=== PATIENT | female | born 1990 | race Two or more races ===

== ENCOUNTER 2020-11-23 03:45 | Emergency (ER) | payer SELFPAY ==
[~2020-11-23] VITALS: Ht 149.9 cm; Wt 52.2 kg
[2020-11-23] MEDS ORDERED: LIDOCAINE 1% HCL (LOCAL ANESTH.) INJ 20ML MDV IJ ONE (06:00)
[2020-11-23 07:14] VITALS: BP 125/82
== END 2020-11-23 07:15 | disposition home or self-care (01) ==
LOC: ER 03:45
DX: S01.511A Laceration without foreign body of lip, initial encounter (principal); X58.XXXA Exposure to other specified factors, initial encounter; Y93.89 Activity, other specified; Y92.89 Other specified places as the place of occurrence of the external cause; Y99.8 Other external cause status
CPT/HCPCS: 12014; 99283; J2001

== ENCOUNTER 2021-07-31 15:20 | Inpatient (IN) | payer MEDICAID, OTHER ==
[~2021-07-31] VITALS: Ht 149.9 cm; Wt 61.2 kg
[2021-07-31] MEDS ORDERED: METHYLERGONOVINE MALEATE 0.2 MG/ML AMP IM ONE (15:40)
[2021-07-31] MEDS ORDERED: LACT. RINGERS/OXYTOCIN 20UNITS 1,000 ML IV ONE (15:40)
[2021-07-31] MEDS ORDERED: miSOPROStol 100 mcg TAB ONE (15:40)
[2021-07-31] MEDS ORDERED: LIDOCAINE 2%HCL (LOCAL ANESTH.) INJ 20ML MDV ONE (15:40)
[2021-07-31] MEDS ORDERED: WITCH HAZEL-GLYCERIN PAD TOP PRN (15:45)
[2021-07-31] MEDS ORDERED: PHISODERM TOP SOLN 240ML BTL TOP PRN (15:45)
[2021-07-31] MEDS ORDERED: LIDOCAINE 2%HCL (LOCAL ANESTH.) INJ 20ML MDV IJ PRN (15:45)
[2021-07-31] MEDS ORDERED: DERMOPLAST 60ML BOTTLE TOP PRN (15:45)
[2021-07-31 16:00] VITALS: BP 139/90
[2021-07-31] MEDS ORDERED: ONDANSETRON ODT 4 MG TAB PO PRN (16:00)
[2021-07-31] MEDS: ceFAZolin 1GM/50ML 50 ML IV SCH ×2 (16:00→22:00)
[2021-07-31] MEDS ORDERED: ACETAMINOPHEN 325 MG TAB PO PRN (16:00)
[2021-07-31] MEDS ORDERED: LACT. RINGERS/OXYTOCIN 20UNITS 500 ML IV ONE ×2 (16:00→16:30)
[2021-07-31 16:38] LABS: Urine Bacteria FEW /hpf (None Seen); Urine Blood 2+ /uL (Negative); Urine Mucus FEW (None Seen); Urine Specific Gravity 1.021 (1.001-1.035); Urine WBC <1 /hpf (0 - 5)
[2021-07-31 16:45] LABS: Alcohol, Urine < 3.0 mg/dL (0-10); Amphetamine Screen, Urine POSITIVE (NEGATIVE); Barbiturate Scree,Urine NEGATIVE (NEGATIVE); Benzodiazephine Screen, Urine NEGATIVE (NEGATIVE); Cannabinoid Screen, Urine POSITIVE (NEGATIVE); Cocaine Screen, Urine NEGATIVE (NEGATIVE); Opiate Scree,Urine NEGATIVE (NEGATIVE); Phencyclidine Screen, Urine NEGATIVE (NEGATIVE)
[2021-07-31 17:06] LABS: Basophils # (auto) 0.1 10 ^3/uL (0-0.2); Basophils % (auto) 0.9 % (0.0-2.0); Eosinophils # (auto) 0 10 ^3/uL (0-0.8); Hematocrit 33.3 % (36.0-46.0); Hemoglobin 10.6 g/dL (12.2-16.2); Lymphocytes # (auto) 0.8 10 ^3/uL (0.4-5.4); Lymphocytes % (auto) 5.2 % (10.0-50.0); Mean Corpuscular Hgb Conc. 31.9 g/dL (32.0-36.0); Mean Corpuscular Volume 81.5 fL (80.0-100.0); Monocytes # (auto) 0.6 10 ^3/uL (0-1.3); Monocytes % (auto) 4.2 % (0.0-12.0); Neutrophils # (auto) 13.8 10 ^3/uL (1.6-8.6); Neutrophils % (auto) 89.7 % (37.0-80.0); Red Blood Cells 4.08 10^6/uL (4.0-5.20); White Blood Cell 15.4 10^3/uL (4.4-10.8)
[2021-07-31 17:07] LABS: Red Cell Distribution Width 21.6 % (11.8-14.3)
[2021-07-31 17:18] LABS: INR 0.89 (0.9-1.15); Partial Thromboplastin Time 26.5 sec (23.6-33.0)
[2021-07-31 17:30] LABS: Albumin 1.9 g/dL (3.4-5.0); Calcium 8.1 mg/dL (8.5-10.1); Potassium 4.2 mmol/L (3.5-5.1)
[2021-07-31 17:32] LABS: BUN/Creatinine Ratio 16.9
[2021-07-31 17:35] LABS: Bilirubin, Total 0.2 mg/dL (0.2-1.0); Total Protein 5.8 g/dL (6.4-8.2)
[2021-07-31] MEDS: IBUPROFEN 800 MG TAB PO SCH (18:00)
[2021-07-31 19:00] VITALS: BP 141/94
[2021-07-31] MEDS: DOCUSATE SOD 100 MG CAP PO SCH (22:00)
[2021-07-31 23:00] VITALS: BP 145/94
[2021-08-01 03:00] VITALS: BP 138/89
[2021-08-01] MEDS: ceFAZolin 1GM/50ML 50 ML IV SCH (06:00)
[2021-08-01] MEDS: IBUPROFEN 800 MG TAB PO SCH ×5 (06:00→23:59)
[2021-08-01 06:52] VITALS: BP 136/91
[2021-08-01 07:06] LABS: RPR Non Reactive (Non Reactive); Rubella Antibodies, IgG <0.90 index (Immune >0.99)
[2021-08-01 11:12] VITALS: BP 134/89
[2021-08-01 15:02] VITALS: BP 139/92
[2021-08-01] MEDS: CEPHALEXIN 250 MG CAP PO SCH ×2 (17:40→23:59)
[2021-08-01 19:30] VITALS: BP 144/96
[2021-08-01] MEDS: IBUPROFEN 600 MG TAB PO PRN (20:09)
[2021-08-01] MEDS: DOCUSATE SOD 100 MG CAP PO SCH (22:55)
[2021-08-01 23:19] VITALS: BP 145/99
[2021-08-02 03:00] VITALS: BP 133/79
[2021-08-02] MEDS: IBUPROFEN 600 MG TAB PO PRN (04:00)
[2021-08-02] MEDS: IBUPROFEN 800 MG TAB PO SCH ×2 (05:45→11:32)
[2021-08-02] MEDS: CEPHALEXIN 250 MG CAP PO SCH ×2 (05:45→11:32)
[2021-08-02 07:30] VITALS: BP 120/96
[2021-08-02 10:47] VITALS: BP 134/93
[2021-08-02] MEDS ORDERED: CEPH-509 PO (11:39)
[2021-08-02] MEDS ORDERED: PREN-129 OR (11:39)
[2021-08-02 15:16] VITALS: BP 136/97
== END 2021-08-02 18:27 | disposition home or self-care (01) | DRG 560 ==
LOC: UNDOADMIN 15:20 → LDRP 15:20 → UNDODISIN 08-02 18:27
PROVIDERS: ADMIT Obstetrics & Gynecology; ATTEND Obstetrics & Gynecology
PROC: 10E0XZZ Delivery of Products of Conception, External Approach (ICD-10-PCS; principal; 2021-07-31)
PROC: 0HQ9XZZ Repair Perineum Skin, External Approach (ICD-10-PCS; 2021-07-31)
DX: O34.211 Maternal care for low transverse scar from previous cesarean delivery (principal); Z37.0 Single live birth; O71.82 Other specified trauma to perineum and vulva; Z20.822 Contact with and (suspected) exposure to COVID-19; Z3A.37 37 weeks gestation of pregnancy
CPT/HCPCS: 36415; 80053; 80307; 81001; 85025; 85610; 85730; 86592; 86703; 86762; 86850; 86900; 86901; 87340; 87426; 94760; 96365; 96366; G0378; J2590